=== PATIENT | female | born 2005 | race Caucasian/White ===

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

== ENCOUNTER 2025-01-18 21:30 | Emergency (ER) | payer BC, SELFPAY ==
[2025-01-18 21:33] VITALS: BP 118/73; PULSE 74; RESP 16; TEMP 36.9; O2SAT 99
--- NOTE | 2025-01-18 22:46 | W.ED.GENAD ---
Discharge Plan Disposition Patient Disposition: Home Condition: Good Discharge Details Clinical Impression: Cat bite of right hand Primary Care Provider: Rayne Abbasi ED Provider: Julien King Home Meds and New Rx's Prescriptions: New amoxicillin-pot clavulanate 875-125 mg tablet 1 tab PO BID 7 Days Qty: 14 0RF Discharge Instructions Instructions: Animal Bites ED Additional Instructions: At this time you have a cat bite to your right hand. While there is no evidence of significant infection now, it is very likely that this will become infected. Because of that we will start you on antibiotics. Please take this as prescribed. If you notice any spreading of the redness, or worsening swelling please return immediately for reassessment as this may indicate a severe infection requiring IV antibiotics. As we discussed together, there is concern for potential rabies. While unlikely, the risk is still present. Please monitor your pet closely, or have it tested for potential rabies. If you notice any changes for your pet, please bring it in for immediate testing. If you notice any worsening of your symptoms, or any new symptoms such as vomiting, diarrhea, fever, chills, shortness of breath, chest pain, numbness, weakness, or fainting , please return immediately to the emergency department for reevaluation. Please follow up with your primary care provider as soon as possible for reassessment and reevaluation. As always, it was a pleasure participating in your medical care today. Referrals: Rayne Abbasi [Primary Care Provider] - [facility] General Date/Time Provider Initiated Documentation: 01/18/25 22:01. HPI Narrative: 19-year-old female with no significant past medical history who is uncertain about her current tetanus status, presents today for a bite on the right hand. She is left-hand dominant. At about 8:30 PM her barn cat bit her between the 4th and 5th digits at the MCP joint area in the webspace. This occurred when she was trying to take the food away from the cat. She washed the area and came into the ER for further assessment. She admits to a small amount of achiness in the area but no redness drainage or other complaints. No other modifying factors. She is uncertain about the cats rabies status, but admits that the cat has been acting quite normally with no recent flights, other animal attacks, or signs of injury or abnormal behavior. Related Data Home Medications ?Medication ?Instructions ?Recorded ?Confirmed amoxicillin 875 mg-potassium 1 tab PO BID 7 days #14 tabs 01/18/25 clavulanate 125 mg tablet Previous Rx's ?Medication ?Instructions ?Recorded amoxicillin 875 mg-potassium 1 tab PO BID 7 days #14 tabs 01/18/25 clavulanate 125 mg tablet Allergies Allergy/AdvReac Type Severity Reaction Status Date / Time No Known Allergies Allergy Unverified 01/18/25 21:36 General Stated Complaint: AnimalBite RANDALL: 4 Exam Narrative Exam Narrative: 1.Const: Well-nourished, Well-developed, appearing stated age 2.Eyes: PERRL, no conjunctival injection, and symmetrical lids. 3.ENT: Atraumatic external nose and ears. Moist MM. Neck: Symmetric, trachea midline, No thyromegaly. 4.CVS: +S1/S2, Peripheral pulses 2+ and equal in all extremities. Brisk capillary refill in all extremities. 5.RESP: Unlabored respiratory effort. Clear to auscultation bilaterally. No wheezes rales or rhonchi 6.GI: Soft, Nontender/Nondistended, No hepatosplenomegaly. No guarding or rebound. 7.MSK: Normocephalic, Extremities w/o deformity or ttp No cyanosis or clubbing, Normal movement of all extremities. Right hand: Symmetrically palpable radial and ulnar pulses. Capillary refill less than 2 seconds to all digits. Intact sensation to light touch of the radial, median and ulnar nerves demonstrated by testing in the dorsal web space of the thumb, the distal palmar aspect of the index finger, and the lateral surface of the fifth finger. 2 point discrimination intact to 5mm (up to 6mm can be normal in digits 3-5) of discrimination in the affected digit. Intact motor function of the radial, median and ulnar nerves demonstrated by strength of extension of the isolated distal joint of the index finger, hand research worker kitchen, and spreading of the 2nd through 5th digits. Intact recurrent median nerve as demonstrated by ability to move thumb fully through opposition, abduction and flexion. No snuffbox tenderness. There is no pain or tenderness with flexion or extension of the 4th or 5th digit both actively or passively. Finger is easily flexed and extended. No restriction in range of motion. No sausage shaped digit. No redness or warmth. There does appear to be 2 small bite gilmore in the 4th-5th interspace, no active bleeding. No significant swelling. No redness or drainage. 1 is on the dorsal and 1 is on the ventral aspect of the web interspace. Does not appear to be a through and through. 8.Skin: Warm, Dry. No rashes or lesions. Please see musculoskeletal 9.Neuro: natural resources instructor II-XII grossly intact. Sensation grossly intact, no focal neurologic deficits. 10.Psych: (AAO) x3. Appropriate mood and affect Course Vital Signs Vital signs: Vital Signs Temperature 36.9 C 01/18/25 21:33 Pulse 74 01/18/25 21:33 Respiratory Rate 16 01/18/25 21:33 Blood Pressure 118/73 01/18/25 21:33 Pulse Oximetry 99 01/18/25 21:33 Temperature 36.9 C 01/18/25 21:33 Temperature Source Oral 01/18/25 21:33 Pulse 74 01/18/25 21:33 Respiratory Rate 16 01/18/25 21:33 Blood Pressure 118/73 01/18/25 21:33 Pulse Oximetry 99 01/18/25 21:33 Oxygen Delivery Method Room Air 01/18/25 21:33 Oxygen Flow Rate 0 01/18/25 21:33 Medical Decision Making 19-year-old female with no significant past medical history who is uncertain about her current tetanus status, presents today for a bite on the right hand. She is left-hand dominant. At about 8:30 PM her barn cat bit her between the 4th and 5th digits at the MCP joint area in the webspace. This occurred when she was trying to take the food away from the cat. She washed the area and came into the ER for further assessment. She admits to a small amount of achiness in the area but no redness drainage or other complaints. No other modifying factors. She is uncertain about the cats rabies status, but admits that the cat has been acting quite normally with no recent flights, other animal attacks, or signs of injury or abnormal behavior. Exam demonstrates 2 very small superficial bite gilmore at the web interspace between the 4th and 5th digit on the right hand. No swelling no redness no sausage shaped digit, no passive or active pain with flexion or extension for those fingers. No evidence to suggest extensor or flexor tenosynovitis. Although there is no evidence of infection now, due to the nature of the bite we will start the patient on antibiotics/Augmentin for treatment. We are unable to verify the patient's tetanus status in the EMR, and so out of an abundance of caution we will update her tetanus today. Additionally we did discuss potential rabies risk factors. Patient states that the cat has been acting normally, no recent attacks, no signs or symptoms to suggest rabies. We offered rabies immunoglobulin and vaccine today, but the patient has declined. We did discuss how rabies is a life threatening illness with no here. We discussed the morbidity and mortality of rabies. Patient understands. She has elected to watch the animal closely, or get it brought in for further testing. Will send prescription for Augmentin for home. Discussed red flags for which to return. No bony tenderness to suggest fracture. I have extensively reviewed the treatment plan and discharge instructions with the patient. I have addressed all patient concerns at this time. The patient was made aware of what symptoms to monitor for that would warrant a return to the emergency department. Discussed the plan with the patient, they demonstrate verbal understanding and agreement with our assessment and plan at this time. The documentation in this chart was dictated using [employer] dictation software. Please excuse any dictation errors. Quality:SDOH Health Related Social Needs: No Data to Display PFSH All Active Problems (Updated 01/18/25 @ 22:47 by Julien King DO) Cat bite of right hand (Acute) Social History Smoking risk assessment performed?: No
[2025-01-18] MEDS: Diph,Pertuss(Acell),Tet Vac/Pf 0.5 ML SYR IM (22:48)
[2025-01-18] MEDS: Amox. 875/Clav. 125, 2 TABS/BTL 1 TAB PO (22:57)
[2025-01-18] MEDS: Amoxicillin 875/Clav. 125 TAB PO (22:57)
== END 2025-01-18 23:01 | disposition home or self-care (01) ==
PROVIDERS: Emergency Provider Student in an Organized Health Care Education/Training Program; PCP Nurse Practitioner Family
DX: S61.451A Open bite of right hand, initial encounter (principal); Z23 Encounter for immunization; W55.01XA Bitten by cat, initial encounter; Y93.K9 Activity, other involving animal care; Y92.71 Barn as the place of occurrence of the external cause
CPT/HCPCS: 90471; 90715; 99283

== ENCOUNTER 2025-01-19 15:37 | Observation (INO) | payer BC, SELFPAY ==
[2025-01-19] VITALS (33 sets, daily range): BP systolic 101–144; BP diastolic 32–90; PULSE 69–114; RESP 12–16; TEMP 36.5–36.7; O2SAT 98–100
--- NOTE | 2025-01-19 16:00 | DI.RAD_ITS ---
Exam(s) XR HAND RT COMPLETE EXAM: XR HAND RT COMPLETE CLINICAL HISTORY: Cat bite right hand. TECHNIQUE: 2D digital imaging was performed of the right hand. Three images were obtained. AP, late ral and oblique views were obtained. COMPARISON: No exams were available for comparison FINDINGS: BONES: No acute fracture is present. No bony destructive lesion is seen. JOINTS: No dislocation present. SOFT TISSUE: Normal. No radiopaque foreign bodies or soft tissue gas is seen. IMPRESSION: Unremarkable radiographs of the right hand. DATA REPOSITORY: RADIATION DOSE DELIVERED:
--- NOTE | 2025-01-19 16:17 | ED.GENADUL_ITS ---
Discharge Plan Disposition Patient Disposition: Admit to [facility] Condition: Stable Discharge Details Clinical Impression: Cat bite of right hand with infection Admit Date/Time: 01/19/25 19:51 Admit Provider: Albert Chris Attending Provider: Albert Chris Primary Care Provider: Rayne Abbasi ED Provider: Josefina Downs Discharge Data Discharge Date/Time-TO BE ENTERED AT DEPARTURE: 01/19/25 21:08 HPI General Mode of arrival: ambulatory . Date/Time Provider Initiated Documentation: 01/19/25 15:41 . Limitations to Documentation: no limitations . Information obtained by: patient, RN notes reviewed and old records reviewed . HPI Narrative: 19-year-old female presents to the ER for the second time in 48 hours for a recheck of a cat bite to her right hand. Patient was seen here in the emergency department yesterday after being bit by a barn cat. She is sustained a puncture wound to the dorsum of her right hand and in the webbing of her right hand between her 4th and 5th digits. According to the my colleagues medical records there was no significant erythema or drainage. However today she presents with approximately 3 to 4 cm erythema on the dorsal aspect and palmar aspect of her hand with red streaks going up towards her wrist. She has taken 2 doses of Augmentin 1 last night and 1 this morning. She denies any other associated symptoms she does have some tenderness with palpation. Related Data Home Medications ?Medication ?Instructions ?Recorded ?Confirmed amoxicillin 875 mg-potassium 1 tab PO BID 7 days #14 tabs 01/18/25 01/19/25 clavulanate 125 mg tablet Previous Rx's ?Medication ?Instructions ?Recorded amoxicillin 875 mg-potassium 1 tab PO BID 7 days #14 tabs 01/18/25 clavulanate 125 mg tablet Allergies Allergy/AdvReac Type Severity Reaction Status Date / Time No Known Allergies Allergy Unverified 01/19/25 15:41 General Stated Complaint: Recheck RANDALL: 4 Review of Systems Integumentary/Breasts Skin/Breast: Reports as per HPI, Reports erythema, Reports skin pain, Reports skin swelling and Reports wounds Exam Const General: cooperative Nutritional Appearance: average body habitus Orientation: alert, awake and oriented x3 Resp Effort & Inspection: normal respiratory effort and able to speak in complete sentences Auscultation: clear to auscultation bilaterally Cardio Palpation: normal PMI Rate: tachycardic Heart Sounds: S1 normal and S2 normal Extrem General: normal to inspection and full ROM Right upper extremity: wrist Details: warmth and hand Details: warmth, swelling, ecchymosis and puncture wound Hand/finger images: 2 1. Erythema 2. Red streaks 3. Erythema Course Vital Signs Vital signs: Vital Signs Temperature 36.7 C 01/19/25 15:38 Pulse 108 H 01/19/25 15:38 Respiratory Rate 12 01/19/25 15:38 Blood Pressure 106/76 01/19/25 15:38 Pulse Oximetry 98 01/19/25 15:38 Temperature 36.7 C 01/19/25 15:38 Temperature Source Oral 01/19/25 15:38 Pulse 108 H 01/19/25 15:38 Respiratory Rate 12 01/19/25 15:38 Blood Pressure 106/76 01/19/25 15:38 Blood Pressure Position Sitting 01/19/25 15:38 Pulse Oximetry 98 01/19/25 15:38 Oxygen Delivery Method Room Air 01/19/25 15:38 Oxygen Flow Rate 0 01/19/25 15:38 Pain Level 4 01/19/25 15:38 Medical Decision Making 19-year-old female presents to the ER for the second time in 48 hours for a recheck of a cat bite to her right hand. Patient was seen here in the emergency department yesterday after being bit by a barn cat. She is sustained a puncture wound to the dorsum of her right hand and in the webbing of her right hand between her 4th and 5th digits. According to the my colleagues medical records there was no significant erythema or drainage. However today she presents with approximately 3 to 4 cm erythema on the dorsal aspect and palmar aspect of her hand with red streaks going up towards her wrist. She has taken 2 doses of Augmentin 1 last night and 1 this morning. She denies any other associated symptoms she does have some tenderness with palpation. I did request Dr. Martinez's opinion at the bedside he does recommend possible admission for IV antibiotics due to the rapid worsening of symptoms and red streaks, no obvious signs of tenosynovitis at this time. Patient does not have any pain with passive flexion and is able to extend and flex actively. However I am concerned that this could develop into tenosynovitis. CBC, BMP blood cultures x 2, Pro-Francois and ESR ordered x-ray of right hand to rule out foreign body and 3 g of Unasyn IV piggyback. Staff informed to fill out animal bite form. Patient informed of plan of care she verbalized understanding is in agreement with the plan. 1859: Spoke with Dr. Chris who is on for hospitalist who thinks that she could be given another 24 hours of oral outpatient antibiotics and re-evaluation, he does not consider this to be a failure of outpatient treatment as it has only been 24 hours. Will request hospitalist evaluation. On patient reevaluation she reports that she is having increased hand pain, the redness seems to have spread a little bit more. My colleague did speak with the hospitalist again who agrees to admit for IV antibiotics and observation. Patient aware of the plan of care and is in agreement with the plan. Toradol 15 mg IV ordered. Unasyn 1.5 g every 6 hours ordered next dose would be approximately midnight. At this time patient is tolerating p.o. without difficulty. Patient was transported up to the floor for admission in hemodynamically stable condition. This text was generated using [employer] system, please disregard any oddities of phrase or misspellings. Medical Records Medical records reviewed: Yes I reviewed the patient's medical records. Lab Data Lab results reviewed: Yes I reviewed the patient's lab results. Labs: 01/19/25 18:10 Blood Blood Culture - Pending 01/19/25 17:46 Blood Blood Culture - Pending Laboratory Tests Range/Units 01/19/25 17:37 WBC (4.4-10.8) 10^3/uL 11.71 H RBC (3.93-5.22) 10^6/uL 4.97 Hgb (11.2-15.7) g/dL 15.2 Hct (36.0-46.0) % 43.7 MCV (80-95) fL 88 MCH (27.0-33.0) pg 30.6 MCHC (32.0-36.0) % 34.8 RDW (11.7-14.6) % 12.1 Plt Count (130-400) 10^3/uL 274 MPV (8.0-11.0) fL 9.7 Immature Gran % % 0.3 Neutrophils % % 82.4 Lymphocytes % % 11.0 Monocytes % % 5.8 Eosinophils % % 0.3 Basophils % % 0.2 Nucleated RBC % (0.0-0.3) % 0.0 Absolute Neutrophils (1.2-6.7) 10^3/uL 9.65 H Absolute Lymphocytes (1.2-3.4) 10^3/uL 1.29 Absolute Monocytes (0.1-0.8) 10^3/uL 0.68 Absolute Eosinophils (0.0-0.7) 10^3/uL 0.04 Absolute Basophils (0.0-0.2) 10^3/uL 0.02 ESR (0-20) mm/hr 9 Sodium (136-145) mmol/L 140 Potassium (3.5-5.1) mmol/L 3.6 Chloride (98-107) mmol/L 104 Carbon Dioxide (21.0-32.0) mmol/L 22.0 Anion Gap (3-11) mmol/L 14.0 H BUN (7-18) mg/dL 8 Creatinine (0.55-1.02) mg/dL 0.7 Est GFR (CKD-EPI 2020) (mL/min/1.73m2) 127.69 Glucose (74-106) mg/dL 94 Calcium (8.5-10.1) mg/dL 9.5 Procalcitonin ng/mL < 0.10 Quality:SDOH Health Related Social Needs: 2 No Data to Display PFSH All Active Problems (Updated 01/19/25 @ 19:41 by Josefina Downs NP) Cat bite of right hand with infection (Acute) Cat bite of right hand (Acute) Social History Smoking/Tobacco Use Status: Never Smoking risk assessment performed?: Yes Alcohol Intake: never Substance use type: does not use Housing: house Do you feel safe at home: Yes Do you feel safe in your relationship?: Yes
--- NOTE | 2025-01-19 16:29 | ED.PROG_ITS ---
Date of service: 01/19/25 Time of Service: 16:35 Medical Decision Making I was asked to see this patient by SARAH Downs. Patient was seen here yesterday after being bitten by a brown cat. She received a tetanus update and was placed on Augmentin which she has taken 2 doses. The hand is now red, swollen, painful in the area of the bite. She has red streaks going up the dorsum of her hand toward her wrist. None of this was present yesterday. She came back for recheck. She is noted to have puncture wounds on the palmar aspect of the hand base of the fourth phalanx. Smaller puncture wound on the dorsal aspect similar area. She has swelling and erythema but no definitive fluctuance appreciated. She can open and close her hand pretty much normally. There was no passive pain with extension of the long, ring or pinky finger. X- rays were not obtained yesterday. Will obtain x-rays today to rule out foreign body. Recommend starting an IV and beginning Unasyn. Given the progression of symptoms in a short time despite being on Augmentin will require admission for IV antibiotics. Have recommended to the patient that the current cat should be captured in either sacrificed to rule out rabies or quarantined for 10 days. Discharge Plan Discharge Details Chief Complaint: Recheck Primary Care Provider: Rayne Abbasi ED Provider: Josefina Downs Home Meds and New Rx's Prescriptions: No Action amoxicillin-pot clavulanate 875-125 mg tablet 1 tab PO BID 7 Days Qty: 14 0RF
--- NOTE | 2025-01-19 17:25 | NUR.NOTE ---
Nursing Note: Message left on health officer cell phone regarding the animal bite report. Hal Lupe cell [phone]; home [phone]; dairy clerk fax [phone].
[2025-01-19] MEDS: AMPICILLIN/SULBACTAM 3 GM in Normal Saline 100 ML IVPB (17:32)
[2025-01-19 17:45] LABS: Abs Immature Grans 0.03 10^3/uL (0.0-0.06); Absolute Basophil Count 0.02 10^3/uL (0.0-0.2); Absolute Lymphocyte Count 1.29 10^3/uL (1.2-3.4); Absolute Monocyte Count 0.68 10^3/uL (0.1-0.8); Basophils % 0.2 %; Eosinophils % 0.3 %; HCT 43.7 % (36.0-46.0); HGB 15.2 g/dL (11.2-15.7); Immature Grans % 0.3 %; MCH 30.6 pg (27.0-33.0); MCHC 34.8 % (32.0-36.0); MCV 88 fL (80-95); MPV 9.7 fL (8.0-11.0); Monocytes % 5.8 %; Neutrophils % 82.4 %; Platelet Count 274 10^3/uL (130-400); RBC 4.97 10^6/uL (3.93-5.22); RDW 12.1 % (11.7-14.6); RDW-SD 38.8 fL; WBC 11.71 10^3/uL (4.4-10.8)
[2025-01-19 17:52] LABS: Absolute Eosinophil Count 0.04 10^3/uL (0.0-0.7); Absolute Neutrophil Count 9.65 10^3/uL (1.2-6.7); ESR 9 mm/hr (0-20)
[2025-01-19 18:05] LABS: BUN 8 mg/dL (7-18); CREATININE 0.7 mg/dL (0.55-1.02); Calcium 9.5 mg/dL (8.5-10.1); Chloride 104 mmol/L (98-107); Estimated GFR 127.69 (mL/min/1.73m2); Glucose 94 mg/dL (74-106); Potassium 3.6 mmol/L (3.5-5.1); Sodium 140 mmol/L (136-145)
[2025-01-19 18:14] LABS: Procalcitonin < 0.10 ng/mL
[2025-01-19] MEDS: Ketorolac 15 MG/ML VIAL IVP (20:54)
--- NOTE | 2025-01-19 20:56 | W.PC.ACHO ---
Registration Status: Primary Language: Preferred Language: ED Information & Data Chief Complaint Recheck 01/19/25 16:20 Triage Note Recheck of cat bite R hand. 01/19/25 15:38 Here because she thinks infection is getting worse. Has had two doses of abx. no fever or chills. Most Recent Vital Signs Temperature 36.7 C 01/19/25 15:38 Temperature Source Oral 01/19/25 15:38 Pulse 83 01/19/25 20:53 Respiratory Rate 12 01/19/25 15:38 Blood Pressure 124/32 L 01/19/25 18:01 Blood Pressure Mean 65 01/19/25 18:01 Blood Pressure Position Sitting 01/19/25 15:38 Pulse Oximetry 100 01/19/25 20:53 Oxygen Delivery Method Room Air 01/19/25 15:38 Oxygen Flow Rate 0 01/19/25 15:38 Pain Level 4 01/19/25 15:38 Allergies No Known Allergies Allergy (Unverified 01/19/25 15:41) Precautions Isolation Standard precaution 01/19/25 15:41 IV IV Catheter Type [Right Saline Lock Antecubital] IV Catheter Gauge [Right 18 Antecubital] Diagnostics 01/19/25 Range/Units 17:37 WBC 11.71 H (4.4-10.8) 10^3/uL RBC 4.97 (3.93-5.22) 10^6/uL Hgb 15.2 (11.2-15.7) g/dL Hct 43.7 (36.0-46.0) % MCV 88 (80-95) fL MCH 30.6 (27.0-33.0) pg MCHC 34.8 (32.0-36.0) % RDW 12.1 (11.7-14.6) % Plt Count 274 (130-400) 10^3/uL MPV 9.7 (8.0-11.0) fL Immature Gran % 0.3 % Neutrophils % 82.4 % Lymphocytes % 11.0 % Monocytes % 5.8 % Eosinophils % 0.3 % Basophils % 0.2 % Nucleated RBC % 0.0 (0.0-0.3) % Absolute Neutrophils 9.65 H (1.2-6.7) 10^3/uL Absolute Lymphocytes 1.29 (1.2-3.4) 10^3/uL Absolute Monocytes 0.68 (0.1-0.8) 10^3/uL Absolute Eosinophils 0.04 (0.0-0.7) 10^3/uL Absolute Basophils 0.02 (0.0-0.2) 10^3/uL ESR 9 (0-20) mm/hr Sodium 140 (136-145) mmol/L Potassium 3.6 (3.5-5.1) mmol/L Chloride 104 (98-107) mmol/L Carbon Dioxide 22.0 (21.0-32.0) mmol/L Anion Gap 14.0 H (3-11) mmol/L BUN 8 (7-18) mg/dL Creatinine 0.7 (0.55-1.02) mg/dL Est GFR (CKD-EPI 2020) 127.69 (mL/min/1.73m2) Glucose 94 (74-106) mg/dL Calcium 9.5 (8.5-10.1) mg/dL Procalcitonin < 0.10 ng/mL 01/19/25 18:10 Blood Culture - Pending Blood 01/19/25 17:46 Blood Culture - Pending Blood Biyhd-xo-Eoox Documentation POC Urine Test Start: 01/19/25 16:10 Freq: .Urine Test Status: Active Protocol: Activity Type Activity Date Activity User E-sign Co-sign Detail Recorded Client Recorded Date Recorded By Document 01/19/25 17:16 NS [id number] 01/19/25 17:16 NS Intake and Output - 24 Hour Total 01/19/25 15:37 thru 01/19/25 18:23 Intake Total 100 Balance 100 Weight 49.895 kg Intake: IV 100 Falls Risk Assessment History of Falls No History 01/19/25 15:42 Contributing Factors No Factors 01/19/25 15:42 Ambulatory Aids Independent 01/19/25 15:42 Tubes/Lines None 01/19/25 15:42 Gait Evaluation No gait disturbance 01/19/25 15:42 Cognition No cognitive impairment 01/19/25 15:42 Fall Total Score 0 01/19/25 15:42 Level of Risk Standard/Low Risk 01/19/25 15:42 Problems (Last Reviewed 01/19/25 @ 16:18 by Josefina Downs NP) Cat bite of right hand with infection (Acute) Notes 01/19/25 17:25 Nursing Notes by Pati Dowell Nursing Note: Message left on health officer cell phone regarding the animal bite report. Hal Andrade cell [phone]; home [phone]; mail clerk bills fax [phone]. Initialized on 01/19/25 17:25 - END OF NOTE v v v v v v v v v Sending and/or Receiving Nurses: Please use comment section below to note any information pertinent to the patient hand-off not included above. Information / Comments: R hand bite from outdoor cat. Red and warm, gotten worse since arrival. some streaking around wrist, new as of past few hours. got some ampicillin, A&O, independent, HR a bit tachy, other VSS, on RA. 18g RAC Report received from: Jonatan; called @ 2044
[2025-01-19] MEDS: Enoxaparin 40 MG/0.4 ML SYR SC (21:20)
--- NOTE | 2025-01-19 22:17 | HPE_ITS ---
Date of service: 01/19/25 Time of Service: 22:22 Assessment and Plan Assessment and plan (1) Cat bite of right hand with infection: Status: Acute Assessment and plan: Blood cultures not obtained in the ED. Low threshold to obtain even though she has received antibiotics. Patient is doing well on Augmentin/Unasyn. Will continue Unasyn for now as she is doing rather well on it. Labs in the morning. She was alerted to red flag signs. No murmur noted on exam. She can likely be discharged tomorrow after a few more doses of IV with p.o. Augmentin. Admitted observation status. History of Present Illness Narrative: Patient is a 19-year-old woman with a past medical history significant for depressed mood on an SSRI. She is otherwise healthy. She presents with swelling, erythema, worsening of infection in her right hand following a cat bite 2 nights ago. She was discharged with Augmentin and took 2 doses but noticed worsening swelling. She received 1 dose of Unasyn in the ED and is feeling improved but the right hand continues to have some pain and swelling. She denies fevers, chills, chest pain, palpitations, dizziness, lightheadedness, vision changes, nausea, vomiting, other abdominal complaints, sweats, numbness/tingling, motor deficits. Review of Systems Narrative: 10 point review of systems performed and pertinent positives negatives in HPI above. PFSH All Active Problems Cat bite of right hand with infection (Acute) Cat bite of right hand (Acute) Surgical History (Updated 01/19/25 @ 22:24 by Albert Chris MD) No pertinent past surgical history Family History (Updated 01/19/25 @ 22:24 by Albert Chris MD) Other Cancer Social History Smoking/Tobacco Use Status: Never Smoking risk assessment performed?: Yes Alcohol Intake: never Substance use type: does not use Housing: house Do you feel safe at home: Yes Do you feel safe in your relationship?: Yes Meds Allergies and Home Medications Allergies Allergy/AdvReac Type Severity Reaction Status Date / Time No Known Allergies Allergy Unverified 01/19/25 15:41 Home Medications ?Medication ?Instructions ?Recorded ?Confirmed ?Type amoxicillin 875 mg-potassium 1 tab PO BID 7 days #14 tabs 01/18/25 01/19/25 Rx clavulanate 125 mg tablet Exam Const General: cooperative Orientation: alert and oriented x3 HENMT Head: normal to inspection, normocephalic and atraumatic Resp Effort & Inspection: normal respiratory effort Auscultation: clear to auscultation bilaterally Cardio Rate: regular rate Rhythm: regular rhythm Heart Sounds: no murmurs Neuro General: patient alert, patient awake, patient oriented x3 and no focal motor deficits Sensory Exam: no sensory deficits noted Extrem General: other Right upper extremity: hand (erythema receded from marking); abnormal to inspection (Right hand with swelling and erythema, pink and salmon-colored. no dischar) Results Labs 01/19/25 17:37 01/19/25 17:37 Labs: Laboratory Results - last 24 hr 01/19/25 17:37 WBC 11.71 H RBC 4.97 Hgb 15.2 Hct 43.7 MCV 88 MCH 30.6 MCHC 34.8 RDW 12.1 Plt Count 274 MPV 9.7 Immature Gran % 0.3 Neutrophils % 82.4 Lymphocytes % 11.0 Monocytes % 5.8 Eosinophils % 0.3 Basophils % 0.2 Nucleated RBC % 0.0 Absolute Neutrophils 9.65 H Absolute Lymphocytes 1.29 Absolute Monocytes 0.68 Absolute Eosinophils 0.04 Absolute Basophils 0.02 ESR 9 Sodium 140 Potassium 3.6 Chloride 104 Carbon Dioxide 22.0 Anion Gap 14.0 H BUN 8 Creatinine 0.7 Est GFR (CKD-EPI 2020) 127.69 Glucose 94 Calcium 9.5 Procalcitonin < 0.10 Last Vital Signs Temp 36.5 C 01/19/25 21:00 Pulse 113 H 01/19/25 21:00 Resp 16 01/19/25 21:00 BP 101/51 L 01/19/25 21:00 Pulse Ox 100 01/19/25 21:00 Time Spent Time spent with Patient: <40 minutes Time was spent: preparing to see the patient(eg.review tests), obtaining and/or reviewing separately otained hiistory, ordering medications,tests, procedures, referring, communicating with other health daycare assistant, indepentently interpreting results and counseling the patient
[2025-01-20] MEDS: AMPICILLIN/SULBACTAM 1.5 GM in Normal Saline 50 ML IVPB ×3 (00:03→12:07)
[2025-01-20] MEDS: Normal Saline Flush 10 ML SYR IVP ×2 (00:03→08:53)
[2025-01-20 03:50] VITALS: BP 98/62; PULSE 72; RESP 14; TEMP 36.7; O2SAT 100
[2025-01-20 06:49] LABS: HCT 37.9 % (36.0-46.0); HGB 12.9 g/dL (11.2-15.7); MCH 30.6 pg (27.0-33.0); MCV 90 fL (80-95); MPV 9.9 fL (8.0-11.0); Platelet Count 229 10^3/uL (130-400); RBC 4.22 10^6/uL (3.93-5.22); RDW-SD 39.5 fL; WBC 5.81 10^3/uL (4.4-10.8)
[2025-01-20 07:07] LABS: Anion Gap 8.3 mmol/L (3-11); BUN 9 mg/dL (7-18); CO2 27.7 mmol/L (21.0-32.0); CREATININE 0.7 mg/dL (0.55-1.02); Calcium 8.5 mg/dL (8.5-10.1); Chloride 106 mmol/L (98-107); Estimated GFR 127.69 (mL/min/1.73m2); Glucose 87 mg/dL (74-106); Potassium 3.8 mmol/L (3.5-5.1); Sodium 142 mmol/L (136-145)
[2025-01-20 07:20] VITALS: BP 98/56; PULSE 76; RESP 16; TEMP 36.3; O2SAT 99
--- NOTE | 2025-01-20 11:13 | PDOC.CMPRO ---
Date of service: 01/20/25 Time of Service: 11:14 Care Management Progress Note Progress Note Text Progress Note Text: Kody was seen in the ED on 01/18 for a cat bite. The cat was know to Kody, lives in her barn. She was sent home on oral antibiotics, but returned the next day (yesterday) when the area of the bite became more reddened, swollen and painful. She was admitted under observation status for IV antibiotics. Kody was sitting up in bed, playing on her phone, when CM met with her. She was very pleasant, and stated that she is feeling much better. The redness on her hand has receded from the marking considerably. Kody lives in [place], [place] with her mom and brother. 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 Due to the location of the bite, and the dirtiness of her job, Kody will stay out of work until Thursday 01/25, per her provider. A return to work note will be provided. [place]alia will discharge on oral antibiotics later today. She will transport herself home. Discharge Potential Discharge Needs: PCP F/U Appt Anticipated Barriers to Discharge: None Identified Patient/Family Education Needs: Review discharge instructions, discuss Ask Me Three Transportation: Private vehicle (Kody's car is in the parking lot and she feels very capable of driving herself home.) Plan: Kody will discharge this afternoon with no new services. She will complete her antibiotic course, f/u with her PCP, and continue per her plan of care. Social Determinants of Health Screening Social Determinants of health last assessed in clinic: 01/20/25 Will the Patient Participate in the Screening?: Yes Do you worry about having a steady place to live?: no Problems where you live: no known problems In the past 12 months, have you had to go without electric, gas, oil or water in your home?: no 1. Within the past 12 months, we worried whether our food would run out before we got money to buy more.: Don't know/refused 2. Within the past 12 months, the food we bought just didn't last and we didn't have money to get more.: Don't know/refused Has lack of transportation kept you from medical appointments or from doing things needed for daily living?: no Has anyone in your life made you feel unsafe or unsupported?: no How hard is it for you to pay for the very basics like food, housing, medical care, and heating? Would you say it is:: Not hard at all Do you want help finding or keeping work or a job?: I do not need or want help If for any reason you need help with day-to-day activities such as bathing, preparing meals, shopping, managing finances, etc., do you get the help you need?: I don?t need any help How often do you feel lonely or isolated from those around you?: Never Do you speak a language other than [place] at home?: No Does the patient want assistance with any of the above?: No
[2025-01-20 11:32] VITALS: BP 110/55; PULSE 79; RESP 16; TEMP 36.8; O2SAT 95
--- NOTE | 2025-01-20 14:21 | DSE_ITS ---
Date of service: 01/20/25 Time of Service: 14:21 DS: Diagnosis Discharge Diagnosis (1) Cat bite of right hand with infection: Status: Acute Discharge Plan Disposition Patient Disposition: Home Condition: Improving Discharge Details Reason For Visit: Infection Admit Date/Time: 01/19/25 19:51 Admit Provider: Albert Chris Attending Provider: Albert Chris Primary Care Provider: Rayne Abbasi Hospital Course Hospital Course: Patient is a 19-year-old woman with a history of depression (on SSRI) who presents with worsening swelling, erythema, and infection in her right hand after a cat bite sustained 2 nights ago. She was initially prescribed Augmentin and took 2 doses, but swelling worsened. She was administered 1 dose of Unasyn in the ED and reports improvement, though the hand remains painful and swollen. She denies fever, chills, chest pain, palpitations, dizziness, visual changes, nausea, vomiting, or any other symptoms. Right hand: Swelling and erythema noted (pink and salmon-colored), no discharge. No significant changes since earlier. * Blood cultures were not obtained in the ED * Cat Bite ? Risk of Infection * Treatment: Continue Augmentin (Amoxicillin-Clavulanate). * Take 875 mg/125 mg twice daily for 7 days. * Complete the full course, even if symptoms improve. * Take with food to reduce stomach upset. * Consider starting a probiotic. Wound Care Instructions * Keep the wound clean and dry. * Wash gently with mild soap and water daily. * Apply a clean bandage if drainage is present. * Elevate the affected hand to reduce swelling. * Avoid using hydrogen peroxide or alcohol on the wound as these can delay healing. Monitor for Signs of Infection: Call your doctor or return to the emergency room if you experience: * Increased redness, swelling, or pain * Pus or drainage * Fever or chills * Red streaks spreading from the wound * Loss of function or numbness in the affected area Tetanus and Rabies: * Tetanus: Last updated 01/18/2025 * Rabies Risk Discussion: * The patient was informed of rabies risks, especially if the cat is stray, wild, or unvaccinated, or if its behavior changes. * The patient declined the rabies vaccine and was instructed to monitor the cat for 10 days. * If the cat shows any signs of illness (e.g., behavior change or aggression), medical care should be sought immediately. * In the event the cat is unavailable for observation, consider starting the rabies vaccine series promptly. Final Disposition and Plan: * Patient is improving on antibiotics and is discharged to home with oral Augmentin. * Follow-up as needed for further care of the wound and continued monitoring for signs of infection or complications. Home Meds and New Rx's Prescriptions: Continued amoxicillin-pot clavulanate 875-125 mg tablet 1 tab PO BID 7 Days Qty: 14 0RF fluoxetine PO DAILY Patient Comments: pt states she takes around 1230 pt states dose unknown Rx Instructions: orally; Discharge Instructions Instructions: Rabies (DC), Amoxicillin and Clavulanate, Animal Bites ED Additional Instructions: Diagnosis: Cat bite ? risk of infection Treatment: Prescribed Augmentin (amoxicillin-clavulanate) Medications * Augmentin (Amoxicillin-Clavulanate) * Dose: Take as prescribed 875 mg/125 mg twice daily. * Duration: 7 days. * Instructions: Take with food to reduce stomach upset. Complete the full course even if symptoms improve. - Start a probiotic. Wound Care * Keep the wound clean and dry. * Wash gently with mild soap and water daily. * Apply a clean bandage if drainage is present. * Elevate the affected area to reduce swelling. * Avoid using hydrogen peroxide or alcohol, which can delay healing. Monitor for Signs of Infection Call your doctor or return to the emergency room if you experience: * Increased redness, swelling, or pain * Pus or drainage * Fever or chills * Red streaks spreading from the wound * Loss of function or numbness in the affected area Tetanus and Rabies * Tetanus: 01/18/2025 * Rabies: Observe cats behavior. You have declined rabies vaccine. Rabies Risk Discussion * Rabies is a rare but fatal viral disease. * Domestic cats can transmit rabies, especially if: * The cat is stray, wild, or unvaccinated * The cat?s vaccination status is unknown * The cat cannot be observed for signs of illness over a 10-day periodYou were advised about: * The risks of rabies infection * The importance of post-exposure prophylaxis * The availability and safety of the rabies vaccine and immune globulin Rabies Vaccine Declination I have been informed of the risks and benefits of rabies post-exposure prophylaxis. I understand that rabies is almost always fatal once symptoms appear, and I knowingly decline the rabies vaccine at this time.Reason for Declining (optional): X Cat is healthy and will be observed for 10 days X Personal or medical preference Instructions * Monitor the cat for 10 days for observation. * If the cat shows any signs of illness (especially behavior change, aggression, or neurological symptoms), seek immediate medical care. * If the cat becomes unavailable, consider starting the rabies vaccine series promptly. * Watch for signs of wound infection as noted earlier. Follow-Up * Return to your doctor in 24?48 hours to check the wound, or sooner if symptoms worsen.. Stand Alone Forms: Nursing Discharge Form Referrals: Rayne Abbasi [Primary Care Provider] - 01/28/25 3:30 pm (1 week post in patient hospitalization for cat bite; treated with augmentin - declined vaccine. ) Activity:: Activity as Tolerated Equipment/Supplies:: No Equipment Needed Diet:: As Tolerated Discharge Orders Discharge Orders: Discharge Order (Routine); Ordered 01/20/25 Ordered By: Ria Morrison Discharge Data Discharge Date/Time-TO BE ENTERED AT DEPARTURE: 01/20/25 15:08 DS: Summary Time Spent with Patient providing and/or coordinating discharge services: Greater than 30 minutes Status at Discharge Functional status at discharge: independent ambulation Overall status at discharge: patient is progressing back to baseline Mental Status: mental status grossly normal Speech and Movement: speech and movement normal Mood: congruent mood Affect: normal affect Quality:SDOH Health Related Social Needs: No Data to Display Exam Const General: cooperative Orientation: alert and oriented x3 HENMT Head: normal to inspection, normocephalic and atraumatic Resp Effort & Inspection: normal respiratory effort Auscultation: clear to auscultation bilaterally Cardio Rate: regular rate Rhythm: regular rhythm Heart Sounds: no murmurs Neuro General: patient alert, patient awake, patient oriented x3 and no focal motor deficits Sensory Exam: no sensory deficits noted Extrem General: other Right upper extremity: hand (erythema receded from marking); abnormal to inspection (Right hand with swelling and erythema, pink and salmon-colored. no dischar) Psych Mental Status: mental status grossly normal Speech and Movement: speech and movement normal Mood: congruent mood Affect: normal affect DS: Data Vitals/I&O Vitals and I&O: Vital Signs Temperature 36.8 C 01/20/25 11:32 Temperature Source Temporal Artery Scan 01/20/25 11:32 Pulse 79 01/20/25 11:32 Pulse Rhythm Regular 01/19/25 21:00 Respiratory Rate 16 01/20/25 11:32 Respiratory Effort Normal, Non-Labored 01/19/25 21:00 Respiratory Depth Normal 01/19/25 21:00 Respiratory Pattern Normal 01/19/25 21:00 Blood Pressure 110/55 L 01/20/25 11:32 Blood Pressure Mean 73 01/20/25 11:32 Blood Pressure Position Sitting 01/19/25 15:38 Pulse Oximetry 95 01/20/25 11:32 Oxygen Delivery Method Room Air 01/20/25 11:58 Oxygen Flow Rate 0 01/20/25 11:58 Pain Level 0 01/20/25 11:32 Intake & Output 01/19/25 01/20/25 01/20/25 23:59 11:59 23:59 Intake Total 100 / 105 165 / 215 50 / 215 Balance 100 / 105 165 / 215 50 / 215 Weight 51.029 kg Intake: IV 100 / 105 165 / 215 50 / 215 Other: Urine Color Yellow Urine Appearance Clear Stool Size Moderate Stool Characteristics Formed Data Completed and Pending Labs on day of discharge: Labs from last 24 hours 01/20/25 01/19/25 06:20 17:37 WBC 5.81 11.71 H RBC 4.22 4.97 Hgb 12.9 D 15.2 Hct 37.9 43.7 MCV 90 88 MCH 30.6 30.6 MCHC 34.0 34.8 RDW 12.0 12.1 Plt Count 229 274 MPV 9.9 9.7 Immature Gran % 0.3 Neutrophils % 82.4 Lymphocytes % 11.0 Monocytes % 5.8 Eosinophils % 0.3 Basophils % 0.2 Nucleated RBC % 0.0 Absolute Neutrophils 9.65 H Absolute Lymphocytes 1.29 Absolute Monocytes 0.68 Absolute Eosinophils 0.04 Absolute Basophils 0.02 ESR 9 Sodium 142 140 Potassium 3.8 3.6 Chloride 106 104 Carbon Dioxide 27.7 22.0 Anion Gap 8.3 14.0 H BUN 9 8 Creatinine 0.7 0.7 Est GFR (CKD-EPI 2020) 127.69 127.69 Glucose 87 94 Calcium 8.5 9.5 Procalcitonin < 0.10 01/19/25 18:10 Blood Blood Culture - Pending 01/19/25 17:46 Blood Blood Culture - Pending Preliminary micro results at discharge 01/19/25 18:10 Blood Blood Culture - Pending 01/19/25 17:46 Blood Blood Culture - Pending [facility] All Active Problems Cat bite of right hand with infection (Acute) Cat bite of right hand (Acute) Surgical History (Updated 01/19/25 @ 22:24 by Albert Chris MD) No pertinent past surgical history Family History (Updated 01/19/25 @ 22:24 by Albert Chris MD) Other Cancer Social History Smoking/Tobacco Use Status: Current every day Smoking risk assessment performed?: Yes Alcohol Intake: never Substance use type: does not use Housing: house Do you feel safe at home: Yes Do you feel safe in your relationship?: Yes Time Spent with Patient Time Spent with Patient: 45-69 minutes Time was spent: preparing to see the patient(eg.review tests), ordering medications,tests, procedures, referring, communicating with other health respiratory care assistant, indepentently interpreting results, counseling the patient and care coordination
== END 2025-01-20 15:08 | disposition home or self-care (01) ==
LOC: ER 19:41 → MS 21:07
PROVIDERS: Admitting Provider Internal Medicine; Emergency Provider Registered Nurse Emergency; PCP Nurse Practitioner Family; Responsible Provider Nurse Practitioner Family; Visit Provider Internal Medicine
DX: S61.451A Open bite of right hand, initial encounter (principal); L08.9 Local infection of the skin and subcutaneous tissue, unspecified; W55.01XA Bitten by cat, initial encounter; F32.A Depression, unspecified; Z79.899 Other long term (current) drug therapy
CPT/HCPCS: 00123; 36415; 80048; 81025; 84145; 85027; 85652; 87040; 96365; 96366; 96372; 96375; 99285; J1650; 73130; 85025; 99222; 99239; G0378; J0295; J1885